=== PATIENT | male | born 1935 | race Caucasian/White ===

== ENCOUNTER → 2016-09-28 | Outpatient (CLI) | payer OTHER, MEDICARE ==
[2016-09-28 10:21] LABS: BASOPHILS # (AUTO) 0.08 10*3/UL; EOSINOPHILS % (AUTO) 4.8 % (0-8); HEMOGLOBIN 15.1 g/dL (14.0-18.0); IMM GRAN % (AUTO) 0.2 % (0-5); IMM GRAN# (AUTO) 0.02 10*3/UL; LYMPHOCYTES # (AUTO) 2.12 10*3/uL; LYMPHOCYTES % (AUTO) 25.2 % (10-50); MEAN CORPUSCULAR HEMOGLOBIN 29.5 PG (27-31); MEAN CORPUSCULAR HGB CONC 35.1 g/dL (33-37); MEAN PLATELET VOLUME 10.1 FL (7.4-12.2); MONOCYTES # (AUTO) 0.76 10*3/UL (0.3-0.8); NEUTROPHILS # (AUTO) 5.03 10*3/UL; NEUTROPHILS % (AUTO) 59.8 % (50-80); RDW COEFFICIENT OF VARIATION 13.5 % (11.5-14.5); RED BLOOD COUNT 5.12 10^6/uL (4.70-6.10); WHITE BLOOD COUNT 8.41 10^3/uL (4.8-10.8)
[2016-09-28 10:24] LABS: PLATELET MORPHOLOGY COMMENT NORMAL MORPHOLOGY (NORM)
[2016-09-28 10:40] LABS: BILIRUBIN,TOTAL 1.3 mg/dL (0.3-1.2); BUN/CREATININE RATIO 12.14 (6-20); CALCIUM 9.8 mg/dL (8.7-10.7); CREATININE 1.4 mg/dL (0.70-1.50); POTASSIUM 3.9 meq/L (3.8-5.2); TOTAL PROTEIN 7.4 g/dL (6.1-8.0)
== END ==
LOC: MOB LAB 09:04
DX: I10 Essential (primary) hypertension (principal); C67.9 Malignant neoplasm of bladder, unspecified; E78.5 Hyperlipidemia, unspecified
CPT/HCPCS: 36415; 80053; 85025

== ENCOUNTER → 2016-10-01 | Outpatient (CLI) | payer OTHER, MEDICARE | LOC: MMPC 11:11 | PROVIDERS: ATTEND Surgery | DX: Z86.010 Personal history of colon polyps (principal); Z80.0 Family history of malignant neoplasm of digestive organs | CPT/HCPCS: 99202; G0463 ==

== ENCOUNTER 2016-10-07 10:04 | Day surgery (SDC) | payer OTHER, MEDICARE ==
[~2016-10-07 10:04] MED LIST: LIDOCAINE W/ SODIUM BICARB 0.5 ML SYR ONE; Lactated Ringers 1,000 ML PRIMARY IV ONE; MIDAZOLAM 5 MG/1 ML ONE; fentaNYL Inj 100 MCG/2 ML VIAL ONE
--- NOTE | 2016-10-07 11:21 | GEN.OPNOTE ---
Colonoscopy Procedure Note Surgery Date: 10/07/16 Preoperative Diagnosis: Personal history of a large right colon polyp requiring right hemicolectomy. Family history of colon cancer. Postoperative Diagnosis: Same. Procedure: Complete colonoscopy with biopsy and destruction of a small polyp at 15 cm from the anal verge. Surgeon: Henrik Vanessa MD Anesthesia Provider: Harpal Newman CRNA Anesthesia Type: MAC Indications: See preoperative diagnosis. Findings: Prep : [Excellent] Cecum : [Surgically absent] Ascending : [Normal, anastomosis normal and widely patent.] Transverse : [Normal] Sigmoid : [Normal] Rectum : [Normal with a tiny polyp at 15 cm. Biopsied with the cold biopsy forceps and destroyed.] Digital Rectal Exam : [Prostate firm slightly enlarged and nonnodular.] A lubricated flexible colonoscope was inserted and passed to the anastomosis in the right upper quadrant. The anastomosis was widely patent. The air was aspirated as the scope was withdrawn. The colonoscopy was normal with the exception of a small polyp at 15 cm from the anal verge. This was removed with a cold biopsy forceps in a piecemeal fashion. Hemostasis was assured. There is no evidence of other polyps, tumors, neoplastic masses, infectious or inflammatory process. The scope was withdrawn completing the procedure. Patient tolerated the procedure well without complication. He was taken to outpatient surgery in stable condition Follow-up will be with my office on an as-needed basis. We will call the biopsy results and plan therapy and follow-up accordingly. Probably would not need another colonoscopy for 5 years at which time he will be 6 and probably is not necessary to do another one.
[2016-10-07 11:26] VITALS: RESP 14
[2016-10-07 12:12] VITALS: TEMP 97
== END 2016-10-07 11:52 | disposition home or self-care (01) ==
LOC: SDSC 10:04
PROVIDERS: ATTEND Surgery
DX: Z86.010 Personal history of colon polyps (principal); Z80.0 Family history of malignant neoplasm of digestive organs; K62.1 Rectal polyp
CPT/HCPCS: 00810; 45380 ×2; J2704; J3010; J2250; J7120

== ENCOUNTER → 2016-12-29 | Outpatient (CLI) | payer OTHER, MEDICARE | LOC: MMPC 11:11 | DX: I50.22 Chronic systolic (congestive) heart failure (principal); I25.10 Atherosclerotic heart disease of native coronary artery without angina pectoris; I10 Essential (primary) hypertension; C67.9 Malignant neoplasm of bladder, unspecified; D12.6 Benign neoplasm of colon, unspecified; M17.12 Unilateral primary osteoarthritis, left knee; E78.2 Mixed hyperlipidemia; H35.30 Unspecified macular degeneration | CPT/HCPCS: 99213; G0463 ==